=== PATIENT | male | born 1990 | race Caucasian/White ===

== ENCOUNTER 2019-02-02 09:46 | Inpatient (IN) | payer OTHER ==
[2019-02-02] MEDS: SOD CHLORIDE 0.9% 1,000 ML IV (10:30)
[2019-02-02] MEDS ORDERED: AL HYDROX/MG HYDROX/SIMETH 30 ML CUP PO (12:00)
[2019-02-02] MEDS ORDERED: hydrALAzine 20 MG INJ IV (12:00)
[2019-02-02] MEDS ORDERED: HYDROmorphONE 1 MG/5 ML IV SYRINGE IV ×2 (12:00)
[2019-02-02] MEDS ORDERED: DIPHENHYDRAMINE 50 MG INJ IV ×2 (12:00)
[2019-02-02] MEDS ORDERED: CEFAZOLIN 1 GM/50 ML (PMX) 50 ML IVPB (12:00)
[2019-02-02] MEDS ORDERED: NALOXONE (0.4 MG/ML) INJ IV (12:00)
[2019-02-02] MEDS ORDERED: LABETALOL HCL 20MG INJ IV (12:00)
[2019-02-02] MEDS ORDERED: DESFLURANE 15 MIN (12:00)
[2019-02-02] MEDS ORDERED: BISACODYL 10 MG SUPP PR (12:00)
[2019-02-02] MEDS ORDERED: ACETAMINOPHEN 325 MG TAB PO (12:00)
[2019-02-02] MEDS ORDERED: FENTAnyl 50 MCG/ML VIAL IV ×3 (12:00)
[2019-02-02] MEDS ORDERED: CEPASTAT LOZENGE MT (12:00)
[2019-02-02] MEDS ORDERED: DIPHENHYDRAMINE 25 MG CAP PO (12:00)
[2019-02-02] MEDS ORDERED: ONDANSETRON 4 MG INJ IV (12:00)
[2019-02-02] MEDS ORDERED: HYDROCODONE/APAP (10/325) TAB PO (12:00)
[2019-02-02] MEDS ORDERED: PROPOFOL 20 ML (12:02)
[2019-02-02] MEDS ORDERED: ROCURONIUM 50 MG INJ ×2 (12:02→12:46)
[2019-02-02] MEDS ORDERED: CEFAZOLIN 1 GM INJ (12:02)
[2019-02-02] MEDS ORDERED: ONDANSETRON 4 MG INJ (12:03)
[2019-02-02] MEDS ORDERED: METOCLOPRAMIDE 10 MG INJ (12:03)
[2019-02-02] MEDS ORDERED: MIDAZOLAM 1 MG/ML 2 ML INJ (12:03)
[2019-02-02] MEDS ORDERED: HYDROmorphONE 2 MG/ML SYG (12:11)
[2019-02-02] MEDS ORDERED: GELATIN SIZE 100 SPONGE (12:22)
[2019-02-02] MEDS ORDERED: HEPARIN 1000 UNITS/ML 10 ML INJ (12:30)
[2019-02-02] MEDS ORDERED: METOPROLOL 5 MG INJ (12:34)
[2019-02-02] MEDS ORDERED: NEOSTIGMINE 3 MG/3 ML SYRINGE (12:34)
[2019-02-02] MEDS ORDERED: THROMBIN 5000 UNIT (RECOTHROM) VIAL (12:38)
[2019-02-02] MEDS: POLYMYXIN/BACITRACIN 1L IRRIG (12:56)
[2019-02-02] MEDS: BUPIVACAINE 0.25%/EPI (SDV) 10 ML INJ (12:56)
[2019-02-02] MEDS: THROMBIN 5000 UNIT (RECOTHROM) VIAL (12:56)
[2019-02-02] MEDS ORDERED: CA CHLORIDE (GM) 10% 10 ML INJ (13:21)
[2019-02-02] MEDS: MEPERIDINE 25 MG INJ IV (14:37)
[2019-02-02] MEDS: ONDANSETRON 4 MG INJ IV (14:38)
[2019-02-02] MEDS: 1/2 NS + KCL 20 MEQ 1,000 ML IV ×2 (16:11→22:44)
[2019-02-02] MEDS: INSULIN ASPART [NOVOLOG] 3 ML PEN SC ×2 (17:55→21:00)
[2019-02-02] MEDS ORDERED: GLUCOSE GEL 15 GRAM TUBE PO ×2 (18:30)
[2019-02-02] MEDS ORDERED: GLUCOSE GEL 15 GRAM TUBE BUCCAL (18:30)
[2019-02-02] MEDS ORDERED: DEXTROSE 50% 50 ML SYRINGE IV ×2 (18:30)
[2019-02-02] MEDS ORDERED: GLUCAGON 1 MG INJ IM (18:30)
[2019-02-02] MEDS: CEFAZOLIN 1 GM/50 ML (PMX) 50 ML IVPB (19:56)
[2019-02-02] MEDS: HYDROCODONE/APAP (10/325) TAB PO (19:56)
[2019-02-02] MEDS: LOSARTAN 25 MG TAB PO (21:05)
[2019-02-02] MEDS: DOCUSATE SODIUM 100 MG CAP PO (21:05)
[2019-02-02] MEDS: CYCLOBENZAPRINE 10 MG TAB PO (21:05)
[2019-02-02] MEDS: HYDROmorphONE 0.5 MG/0.5 ML SYG IV (22:45)
[2019-02-03] MEDS: CEFAZOLIN 1 GM/50 ML (PMX) 50 ML IVPB ×2 (04:27→12:10)
[2019-02-03 05:27] LABS: ADD MAN DIFF? NO
[2019-02-03 05:30] LABS: BASOPHILS % 0.3 % (0.0-2.0); EOSINOPHILS # 0.3 10^3/ul (0.0-0.5); EOSINOPHILS % 2.3 % (0.0-7.0); HEMATOCRIT 44.8 % (42.0-52.0); HEMOGLOBIN 15.1 g/dl (14.0-18.0); LYMPHOCYTES % 25.2 % (15.0-51.0); MEAN CORPUSCULAR HEMOGLOBIN 30.1 pg (29.0-33.0); MEAN CORPUSCULAR HGB CONC 33.7 g/dl (32.0-37.0); MEAN CORPUSCULAR VOLUME 89.2 fl (82.0-101.0); MEAN PLATELET VOLUME 10.2 fl (7.4-10.4); MONOCYTE # 1.1 10^3/ul (0.3-0.9); MONOCYTES % 9.2 % (0.0-11.0); NEUTROPHIL # 7.4 10^3/ul (1.6-7.5); NEUTROPHILS % 62.5 % (39.0-77.0); PLATELET COUNT 251 10^3/UL (140-415); RED BLOOD COUNT 5.02 10^6/ul (4.70-6.10); RED CELL DISTRIBUTION WIDTH 11.9 % (11.5-14.5)
[2019-02-03 05:30] LABS: WHITE BLOOD COUNT 11.9 10^3/ul (4.8-10.8)
[2019-02-03 06:20] LABS: ANION GAP 7 (5-13); BLOOD UREA NITROGEN 10 mg/dl (7-20); CARBON DIOXIDE 34 mmol/L (21-31); CHLORIDE 97 mmol/L (97-110); CREATININE 1.04 mg/dl (0.61-1.24); Estimated GFR > 60 mL/min (>60); GLUCOSE 117 mg/dl (70-220); MAGNESIUM 1.9 mg/dl (1.7-2.5); POTASSIUM 4.7 mmol/L (3.5-5.1); SODIUM 138 mmol/L (135-144)
[2019-02-03 06:43] LABS: CHOL/HDL RATIO 6.5 RATIO; HDL CHOLESTEROL 25 mg/dl (30-63); LDL CHOLESTEROL,CALCULATED 94 mg/dl; TRIGLYCERIDES 220 mg/dl (0-149)
[2019-02-03 06:43] LABS: CHOLESTEROL 163 mg/dl (100-200)
[2019-02-03 07:10] LABS: HEMOGLOBIN A1C 6.7 % (0-5.9)
[2019-02-03] MEDS: INSULIN ASPART [NOVOLOG] 3 ML PEN SC ×3 (07:50→17:55)
[2019-02-03] MEDS: HYDROCODONE/APAP (10/325) TAB PO ×3 (08:00→19:39)
[2019-02-03] MEDS: metFORMIN 500 MG TAB PO (08:57)
[2019-02-03] MEDS: DOCUSATE SODIUM 100 MG CAP PO (08:57)
[2019-02-03] MEDS: LOSARTAN 25 MG TAB PO (08:57)
[2019-02-03] MEDS: 1/2 NS + KCL 20 MEQ 1,000 ML IV (09:00)
[2019-02-03] MEDS: SOD CHLORIDE 0.9% 1,000 ML IV (10:30)
== END 2019-02-03 20:00 | disposition home or self-care (01) | DRG 519 ==
LOC: REC 09:46 → MS1 16:02
PROVIDERS: Specialist
PROC: 0SB23ZZ Excision of Lumbar Vertebral Disc, Percutaneous Approach (ICD-10-PCS; principal; 2019-02-02 12:00)
PROC: 01NB3ZZ Release Lumbar Nerve, Percutaneous Approach (ICD-10-PCS; 2019-02-02 12:00)
DX: M51.16 Intervertebral disc disorders with radiculopathy, lumbar region (principal); Z68.41 Body mass index [BMI] 40.0-44.9, adult; E66.01 Morbid (severe) obesity due to excess calories; E11.9 Type 2 diabetes mellitus without complications; I10 Essential (primary) hypertension
CPT/HCPCS: 72020; 80048; 80061; 82962; 83036; 83735; 85025; 86999; 88304; 97110; 97116; 97161; 97530